=== PATIENT | male | born 1985 | race Caucasian/White ===

== ENCOUNTER 2019-12-27 12:32 | Emergency (ER) | payer SELFPAY ==
[~2019-12-27] VITALS: Ht 177.8 cm; Wt 109.3 kg
--- NOTE | 2019-12-27 12:59 | NUR ---
Patient ambulated to bed 4. RN evaluating patient at bedside.
[2019-12-27 13:01] VITALS: BP 137/94
[2019-12-27] MEDS ORDERED: ALUMINUM HYD/MAG/SIMETHICONE 30 ML UDC PO ONE (13:20)
[2019-12-27] MEDS ORDERED: FAMOTIDINE 20 MG TAB PO ONE (13:20)
--- NOTE | 2019-12-27 13:33 | NUR ---
MAALOX AND PEPCID ADMINISTERED
--- NOTE | 2019-12-27 13:34 | NUR ---
PT C/O INTERMITTENT AND DULL EPIGASTRIC PAIN 4/10 X 3 DAYS. OCASIONALLY RADIATING TO L RIB CAGE. PT DENIES PAIN WORSENING WITH EATING OR EXERCISE. DENIES NAUSEA. DENIES CARDIAC HISTORY. PMH- DENIES.
--- NOTE | 2019-12-27 13:58 | NUR ---
Dr. Carpio is evaluating the patient at bedside.
--- NOTE | 2019-12-27 14:18 | NUR ---
NADR, PAIN 07/26
[2019-12-27 14:19] VITALS: BP 125/83
--- NOTE | 2019-12-27 14:19 | NUR ---
Patient discharged with v/s stable. Written and verbal after care instructions given and explained. Patient alert, oriented and verbalized understanding of instructions. Ambulatory with steady gait. All questions addressed prior to discharge. ID band removed. Patient advised to follow up with PMD. Rx of PEPCID given. Patient educated on indication of medication including possible reaction and side effects. Opportunity to ask questions provided and answered. INFORMED PT EKG SHOWS NO CARDIAC PROBLEMS
== END 2019-12-27 14:19 | disposition home or self-care (01) ==
LOC: MED 12:32
DX: K29.70 Gastritis, unspecified, without bleeding (principal); R07.9 Chest pain, unspecified
CPT/HCPCS: 93005; 99283